=== PATIENT | male | born 1995 | race Caucasian/White ===

== ENCOUNTER 2018-01-25 13:03 | Emergency (ER) | payer OTHER ==
[~2018-01-25] VITALS: Ht 170.2 cm; Wt 60.0 kg
[2018-01-25 13:37] VITALS: BP 128/85; PULSE 84; RESP 18; TEMP 98.2; O2SAT 97
[2018-01-25 14:32] LABS: AUTOMATED NEUTROPHIL # 11.7 TH/MM3 (1.8-7.7); BASOPHIL % 0.3 % (0.0-2.0); EOSINOPHIL # 0.2 TH/MM3 (0-0.4); EOSINOPHIL % 1.1 % (0.0-4.0); HEMATOCRIT 45.4 % (39.0-51.0); HEMOGLOBIN 15.5 GM/DL (13.0-17.0); LYMPH % 9.9 % (9.0-44.0); LYMPHOCYTE # 1.4 TH/MM3 (1.0-4.8); MEAN CELL VOLUME 83.3 FL (80.0-100.0); MEAN CORPUSCULAR HEMOGLOBIN 28.4 PG (27.0-34.0); MEAN CORPUSCULAR HGB CONC 34.1 % (32.0-36.0); MEAN PLATELET VOLUME 8.8 FL (7.0-11.0); MONO % 9.1 % (0.0-8.0); MONOCYTE # 1.3 TH/MM3 (0-0.9); NEUT % 79.6 % (16.0-70.0); PLATELET COUNT 218 TH/MM3 (150-450); RED BLOOD COUNT 5.45 MIL/MM3 (4.50-5.90); RED CELL DISTRIBUTION WIDTH 13.4 % (11.6-17.2); WHITE BLOOD COUNT 14.7 TH/MM3 (4.0-11.0)
[2018-01-25 14:46] LABS: ALBUMIN 4.1 GM/DL (3.4-5.0); ALT (GPT) 17 U/L (12-78); AST (GOT) 15 U/L (15-37); BICARBONATE 25.9 MEQ/L (21.0-32.0); BLOOD UREA NITROGEN 16 MG/DL (7-18); CALCIUM 9.2 MG/DL (8.5-10.1); CHLORIDE 106 MEQ/L (98-107); CREATININE 0.91 MG/DL (0.60-1.30); GLOMERULAR FILTRATION RATE 103 ML/MIN (>89); GLUCOSE,RANDOM 99 MG/DL (74-106); SODIUM (NA) 138 MEQ/L (136-145)
[2018-01-25 14:55] LABS: ALKALINE PHOSPHATASE 102 U/L (45-117); TOTAL BILIRUBIN ADULT 0.2 MG/DL (0.2-1.0); TOTAL PROTEIN 8.4 GM/DL (6.4-8.2)
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
[2018-01-25 16:01] VITALS: BP 132/81; PULSE 67; RESP 16; TEMP 98.7; O2SAT 97
[2018-01-25 18:29] VITALS: BP 127/81; PULSE 83; RESP 18; O2SAT 97
[2018-01-25 22:25] VITALS: BP 122/63; PULSE 70; RESP 18; TEMP 98.2; O2SAT 97
[2018-01-26 06:14] VITALS: BP 121/65; PULSE 96; RESP 18; TEMP 98.4; O2SAT 99
[2018-01-26 10:07] VITALS: BP 122/70; PULSE 74; RESP 16; O2SAT 96
[2018-01-26 17:46] VITALS: BP 141/79; PULSE 70; RESP 18; O2SAT 100
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
--- NOTE | 2018-01-26 18:49 | PD ---
Physical Exam Date Seen by Provider: Jan 26, 2018 Time Seen by Provider: 18:47 Data Data Last Documented VS Vital Signs Date Time Temp Pulse Resp B/P (MAP) Pulse Ox O2 Delivery O2 Flow Rate FiO2 01/26/18 17:46 70 18 141/79 (99) 100 Room Air 01/26/18 06:14 98.4 Orders Orders Complete Blood Count With Diff (01/25/18 13:36) Comprehensive Metabolic Panel (01/25/18 13:36) Thyroid Stimulating Hormone (01/25/18 13:36) Psych Screen (01/25/18 13:36) Drug Screen, Random Urine (01/25/18 13:36) Alcohol (Ethanol) (01/25/18 13:36) Diet Regular Basic (01/25/18 Lunch) Diet Regular Basic (01/25/18 Dinner) Diet Regular Basic (01/26/18 Breakfast) Diet Regular Basic (01/26/18 Lunch) Ed Discharge Order (01/26/18 18:05) Labs Laboratory Tests Test 01/25/18 14:05 01/25/18 14:25 White Blood Count 14.7 TH/MM3 Red Blood Count 5.45 MIL/MM3 Hemoglobin 15.5 GM/DL Hematocrit 45.4 % Mean Corpuscular Volume 83.3 FL Mean Corpuscular Hemoglobin 28.4 PG Mean Corpuscular Hemoglobin Concent 34.1 % Red Cell Distribution Width 13.4 % Platelet Count 218 TH/MM3 Mean Platelet Volume 8.8 FL Neutrophils (%) (Auto) 79.6 % Lymphocytes (%) (Auto) 9.9 % Monocytes (%) (Auto) 9.1 % Eosinophils (%) (Auto) 1.1 % Basophils (%) (Auto) 0.3 % Neutrophils # (Auto) 11.7 TH/MM3 Lymphocytes # (Auto) 1.4 TH/MM3 Monocytes # (Auto) 1.3 TH/MM3 Eosinophils # (Auto) 0.2 TH/MM3 Basophils # (Auto) 0.0 TH/MM3 CBC Comment DIFF FINAL Differential Comment Blood Urea Nitrogen 16 MG/DL Creatinine 0.91 MG/DL Random Glucose 99 MG/DL Total Protein 8.4 GM/DL Albumin 4.1 GM/DL Calcium Level 9.2 MG/DL Alkaline Phosphatase 102 U/L Aspartate Amino Transf (AST/SGOT) 15 U/L Alanine Aminotransferase (ALT/SGPT) 17 U/L Total Bilirubin 0.2 MG/DL Sodium Level 138 MEQ/L Potassium Level 3.9 MEQ/L Chloride Level 106 MEQ/L Carbon Dioxide Level 25.9 MEQ/L Anion Gap 6 MEQ/L Estimat Glomerular Filtration Rate 103 ML/MIN Thyroid Stimulating Hormone 3rd Gen 1.890 uIU/ML Ethyl Alcohol Level LESS THAN 3 MG/DL Urine Opiates Screen NEG Urine Barbiturates Screen NEG Urine Amphetamines Screen NEG Urine Benzodiazepines Screen NEG Urine Cocaine Screen NEG Urine Cannabinoids Screen POS MDM Medical Record Reviewed: Yes Supervised Visit with TJ: No Narrative Course Patient initially presented as a Allen act for homicidal ideations. He was medically cleared. The psychiatric nurse practitioner saw him and lifted the Allen act. Patient is well appearing, calm, cooperative. Labs reviewed and are essentially unremarkable. Vital signs stable. Patient is stable for outpatient follow-up. Diagnosis Primary Impression: Adjustment disorder Patient Instructions: General Instructions, Stress (ED), Medical Clearance for Psychiatric Care (ED) Departure Forms: Tests/Procedures Additional Instruction: Follow up with outpatient primary care provider. Follow up with outpatient Chip MarchXOJET Act [phone]. Return to ER if symptoms worsen. Scripts No Active Prescriptions or Reported Meds Disposition: 01 DISCHARGE HOME Condition: Stable Ese Cervantes Jan 26, 2018 18:49
== END 2018-01-26 19:10 | disposition home or self-care (01) ==
LOC: NEPD 13:03 → NEPJ 01-26 19:10
DX: F43.25 Adjustment disorder with mixed disturbance of emotions and conduct (principal); F90.9 Attention-deficit hyperactivity disorder, unspecified type; F32.9 Major depressive disorder, single episode, unspecified; F41.9 Anxiety disorder, unspecified; F12.90 Cannabis use, unspecified, uncomplicated
CPT/HCPCS: 80053; 80307; 84443; 85025; 99283